=== PATIENT | male | born 1975 | race African-American/Black ===

== ENCOUNTER 2016-06-26 02:00 | Emergency (ER) | payer MEDICAID, OTHER ==
[~2016-06-26] VITALS: Ht 165.1 cm; Wt 65.0 kg
[~2016-06-26 02:00] MED LIST: ATIVAN; BENAZEPRIL; CLONIDINE; HERBS; LORA-250 PO
[2016-06-26 02:03] VITALS: BP 185/116
== END 2016-06-26 03:14 | disposition left against medical advice (07) ==
LOC: ER 02:00
DX: C25.9 Malignant neoplasm of pancreas, unspecified (principal)
CPT/HCPCS: 99283

== ENCOUNTER 2019-01-17 06:28 | Emergency (ER) | payer OTHER ==
[~2019-01-17] VITALS: Ht 172.7 cm; Wt 68.0 kg
[2019-01-17] MEDS ORDERED: SODIUM CHLORIDE 0.9% 1,000 ML IV ONE (09:45)
[2019-01-17] MEDS ORDERED: LORAZEPAM 2MG/ML CPJ IV ONE (09:45)
[2019-01-17] MEDS ORDERED: ONDANSETRON HCL 4MG/2ML INJ IV ONE (09:45)
[2019-01-17 10:21] LABS: BASOPHILS % 1.2 % (0.0-2.0); EOSINOPHILS % 0.4 % (0.0-5.0); HEMATOCRIT. 37.7 % (42.0-52.0); HEMOGLOBIN. 12.3 g/dL (14.0-18.0); LYMPHOCYTES % 15.1 % (20.0-50.0); MEAN CORPUSCULAR VOLUME 76.8 fL (80.0-94.0); MEAN PLATELET VOLUME 8.3 fl (7.4-10.4); MONOCYTES % 8.1 % (2.0-8.0); NEUTROPHILS % 75.2 % (40.0-76.0); PLATELET 321 x1000/uL (130-400); RED BLOOD CELL COUNT 4.91 mill/uL (4.7-6.1)
[2019-01-17 10:28] LABS: CHLORIDE 105 mEq/L (98-107)
[2019-01-17 10:36] LABS: CLARITY URINE CLEAR (CLEAR); COLOR URINE DARK YELLOW (YELLOW); KETONES URINE TRACE (NEGATIVE); LEUKOCYTE ESTERASE URINE NEGATIVE (NEGATIVE); NITRITE URINE NEGATIVE (NEGATIVE); OCCULT BLOOD URINE TRACE (NEGATIVE); PROTEIN URINE 2+ (NEGATIVE); SPECIFIC GRAVITY URINE 1.015 (1.005-1.030)
[2019-01-17 10:46] LABS: ETHANOL BLOOD 436 mg/dL
[2019-01-17 10:47] LABS: *AMPHETAMINES SCREEN URINE NEGATIVE (NEGATIVE); *BARBITURATES SCREEN URINE NEGATIVE (NEGATIVE); *BENZODIAZEPINES SCREEN URINE NEGATIVE (NEGATIVE)
[2019-01-17 10:48] LABS: *COCAINE SCREEN URINE NEGATIVE (NEGATIVE); CANNABINOID URINE SCREEN NEGATIVE (NEGATIVE); METHADONE URINE SCREEN NEGATIVE (NEGATIVE); OPIATES URINE SCREEN NEGATIVE (NEGATIVE); PHENCYCLIDINE URINE SCREEN NEGATIVE (NEGATIVE)
[2019-01-17] MEDS ORDERED: FOLIC ACID/VITAMIN B COMP W-C TABLET PO STA (12:25)
[2019-01-17 16:45] VITALS: BP 118/77
== END 2019-01-17 16:57 | disposition home or self-care (01) ==
LOC: ER 07:08
DX: S92.353A Displaced fracture of fifth metatarsal bone, unspecified foot, initial encounter for closed fracture (principal); F10.129 Alcohol abuse with intoxication, unspecified; M79.672 Pain in left foot; I10 Essential (primary) hypertension; Z79.899 Other long term (current) drug therapy
CPT/HCPCS: 36415; 70450; 73620; 80053; 80305; 80320; 81003; 85025; 93005; 96374; 99284; J2060; J7030; Z7610; J2405; G0480

== ENCOUNTER 2019-01-26 10:30 | Emergency (ER) | payer OTHER ==
[~2019-01-26] VITALS: Ht 167.6 cm; Wt 65.0 kg
[2019-01-26] MEDS ORDERED: SODIUM CHLORIDE 0.9% 1,000 ML IV ONE (10:56)
[2019-01-26] MEDS ORDERED: PANTOPRAZOLE SODIUM 40 MG/VIAL IV STA (10:56)
[2019-01-26] MEDS ORDERED: OCTREOTIDE ACETATE 50 MCG/ML 1ML IV STA (10:56)
[2019-01-26] MEDS ORDERED: ONDANSETRON HCL 4MG/2ML INJ IV STA (10:56)
[2019-01-26] MEDS ORDERED: LORAZEPAM 2MG/ML CPJ IV ONE (11:00)
[2019-01-26 12:14] LABS: INR 1.1; PARTIAL THROMBOPLASTIN TIME 28.5 sec (23.4-31.0); PROTHROMBIN TIME 11.2 sec (9.6-11.0)
[2019-01-26 12:16] LABS: CHLORIDE 108 mEq/L (98-107)
[2019-01-26 12:22] LABS: HEMATOCRIT. 36.5 % (42.0-52.0); HEMOGLOBIN. 11.8 g/dL (14.0-18.0); MEAN CORPUSCULAR VOLUME 77.5 fL (80.0-94.0); MEAN PLATELET VOLUME 8.9 fl (7.4-10.4); PLATELET 152 x1000/uL (130-400); RED BLOOD CELL COUNT 4.71 mill/uL (4.7-6.1); RED CELL DISTRIBUTION WIDTH 20.7 % (11.6-14.6)
[2019-01-26 12:32] LABS: ETHANOL BLOOD 547 mg/dL
[2019-01-26 12:42] LABS: CLARITY URINE CLEAR (CLEAR); COLOR URINE YELLOW (YELLOW); KETONES URINE NEGATIVE (NEGATIVE); LEUKOCYTE ESTERASE URINE NEGATIVE (NEGATIVE); NITRITE URINE NEGATIVE (NEGATIVE); OCCULT BLOOD URINE NEGATIVE (NEGATIVE); PROTEIN URINE 1+ (NEGATIVE); SPECIFIC GRAVITY URINE 1.007 (1.005-1.030)
[2019-01-26 13:00] LABS: *BENZODIAZEPINES SCREEN URINE NEGATIVE (NEGATIVE); *COCAINE SCREEN URINE NEGATIVE (NEGATIVE); METHADONE URINE SCREEN NEGATIVE (NEGATIVE); OPIATES URINE SCREEN NEGATIVE (NEGATIVE)
[2019-01-26 13:01] LABS: *AMPHETAMINES SCREEN URINE NEGATIVE (NEGATIVE); *BARBITURATES SCREEN URINE NEGATIVE (NEGATIVE); CANNABINOID URINE SCREEN NEGATIVE (NEGATIVE); PHENCYCLIDINE URINE SCREEN NEGATIVE (NEGATIVE)
[2019-01-26 13:50] LABS: NUCLEATED RED BLOOD CELLS 6 /100 WBC
[2019-01-26 13:51] LABS: PLATELET ESTIMATE NORMAL
[2019-01-26 14:05] VITALS: BP 133/85
== END 2019-01-26 18:39 | disposition home or self-care (01) ==
LOC: ER 10:30
DX: G92 Toxic encephalopathy (principal); F10.20 Alcohol dependence, uncomplicated; Z88.6 Allergy status to analgesic agent; I10 Essential (primary) hypertension; Z98.890 Other specified postprocedural states; Y90.8 Blood alcohol level of 240 mg/100 ml or more
CPT/HCPCS: 36415; 70450; 71045; 80053; 80305; 80307; 80320; 80329; 81003; 83690; 84484; 85025; 85610; 85730; 86850; 86900; 86901; 87040; 93005; 96374; 96375; 99284; C9113; J2060; J2405; J7030; Z7610; J2354; G0480

== ENCOUNTER 2019-08-31 09:25 | Emergency (ER) | payer OTHER ==
[~2019-08-31] VITALS: Ht 172.7 cm; Wt 55.0 kg
[2019-08-31] MEDS ORDERED: SODIUM CHLORIDE 0.9% 1000ML BAG (SEPSIS BOLUS) IV ONE (10:15)
[2019-08-31] MEDS ORDERED: PIPERACILLIN/TAZ 3.375G PREMIX 50 ML IV ONE (10:15)
[2019-08-31] MEDS ORDERED: VANCOMYCIN 1 G PREMIX 200 ML IV ONE (10:15)
[2019-08-31 10:43] LABS: BASOPHILS % 1.5 % (0.0-2.0); EOSINOPHILS % 0.5 % (0.0-5.0); HEMATOCRIT. 34.8 % (42.0-52.0); HEMOGLOBIN. 11.5 g/dL (14.0-18.0); LYMPHOCYTES % 17.2 % (20.0-50.0); MEAN CORPUSCULAR HEMOGLOBIN 25.6 pg (28.0-32.0); MEAN CORPUSCULAR VOLUME 77.7 fL (80.0-94.0); MEAN PLATELET VOLUME 8.6 fl (7.4-10.4); MONOCYTES % 6.1 % (2.0-8.0); NEUTROPHILS % 74.7 % (40.0-76.0); PLATELET 313 x1000/uL (130-400); RED BLOOD CELL COUNT 4.48 mill/uL (4.7-6.1); RED CELL DISTRIBUTION WIDTH 17.6 % (11.6-14.6)
[2019-08-31 10:46] LABS: CHLORIDE 104 mEq/L (98-107)
[2019-08-31 10:47] LABS: PROTHROMBIN TIME 11.3 sec (9.6-11.0)
[2019-08-31 10:50] LABS: ETHANOL BLOOD 256 mg/dL
[2019-08-31] MEDS ORDERED: DIAZEPAM 5 MG/ML 2ML CPJ IV NR (11:15)
[2019-08-31] MEDS ORDERED: MORPHINE SULFATE 4 MG/ML CPJ (NOT FOR IM USE) IV ONE (12:00)
[2019-08-31 12:14] VITALS: BP 142/96
== END 2019-08-31 13:19 | disposition short-term general hospital (02) ==
LOC: ER 09:25 → CANBEDREQ 18:01
DX: L03.116 Cellulitis of left lower limb (principal); L03.115 Cellulitis of right lower limb; D64.9 Anemia, unspecified; I10 Essential (primary) hypertension; F10.229 Alcohol dependence with intoxication, unspecified; Y90.0 Blood alcohol level of less than 20 mg/100 ml
CPT/HCPCS: 36415; 71045; 73630; 80053; 80320; 83605; 83690; 84145; 84484; 85025; 85610; 87040; 87076; 93005; 96365; 96368; 96375; 99285; J2543; J3360; J3370; J7030; J2270; G0480

== ENCOUNTER 2019-11-01 16:02 | Emergency (ER) | payer MEDICAID, OTHER ==
[~2019-11-01] VITALS: Ht 172.7 cm; Wt 79.0 kg
[2019-11-01] MEDS ORDERED: IBUPROFEN 600MG TABLET PO ONE (17:45)
[2019-11-01] MEDS ORDERED: LORAZEPAM 1MG TABLET PO ONE (18:15)
[2019-11-01 19:18] VITALS: BP 134/82
== END 2019-11-01 19:24 | disposition home or self-care (01) ==
LOC: ER 16:02
DX: M79.672 Pain in left foot (principal); M79.671 Pain in right foot; I10 Essential (primary) hypertension; G40.909 Epilepsy, unspecified, not intractable, without status epilepticus; Z59.0 Homelessness; Z88.6 Allergy status to analgesic agent
CPT/HCPCS: 99283